=== PATIENT | male | born 1950 | race Caucasian/White ===

== ENCOUNTER 2016-10-11 22:49 | Inpatient (IN) | payer BC, MEDICARE ==
[~2016-10-11 22:49] MED LIST: ADULT LOW DOSE81 M1 PO; ADVAIR 25028 BLISTER INH; ALEVE220 M4 PO; ALLEGRA180 MG PO; AMARYL2 MG PO; AMOXICILLIN500 M1 PO; ASPIR 8181 MG PO; AUGMENTIN 875-1 EAC2 PO; BEE POLLEN PO; BEE POLLEN550 MG PO; BENZONATATE100 M1 PO; CIPRO500 M2 PO; COMPAZINE10 MG PO; COZAAR25 M1 PO; DESONIDE TP; DESONIDE15 G1 TP; ERYTHROMYCIN500 MG PO; FEXOFENADINE H180 M1 PO; FISH OIL 1,0001 CA PO; FISH OIL 1,2001 EAC5 PO; FLONASE ALLERG9.9 ML; FLUTICASONE; GLIPIZIDE10 M2 PO; GLUCOPHAGE1000 MG PO; GLUCOTROL10 M1 PO; HUMALOG MI100 UNIT/3 SQ; HUMULIN N100 U/ML SQ; HUMULIN N100 UNIT/2 SC; HYDROCODON-ACE1 EA16 PO; JARDIANCE25 MG PO; LEVAQUIN500 M1 PO; LEVEMIR100 UNITS/ SC; LOPID600 MG PO; MEDROL4 M1 PO; MEDROL4 M2; MIDODRINE HCL5 M1 PO; MIRALAX17 G2 PO; MOBIC15 M1 PO; NEOMYCIN SULFA500 M1 PO; NITROSTAT0.4 MG/TAB SL; NORCO 5-325 TA1 EACH PO; NOVOLOG FL100 UNIT/2 SC; NOVOLOG100 UNITS/ SC; NYSTATIN15 G2 TP; OMEPRAZOLE20 M3 PO; OMEPRAZOLE40 M2 PO; PROMETH-CODEIN 65 ML PO; PROTONIX40 M2 PO; PROTOPIC60 GM TP; RENAFOOD PO; SENOKOT-S TABL1 EACH PO; SINGULAIR10 M1 PO; SINGULAIR10 MG PO; TOPROL XL25 MG PO; TRIAMCINOLONE A15 G2 TP; TRIAMCINOLONE A15 GM TP; TYLENOL325 M2 PO; VITAMIN D250000 UNI1 PO; VITAMIN D32000 UNI3 PO; VITAMIN D35000 UNI2 PO; VITAMIN D35000 UNI3 PO; VITAMIN D350000 UNI1 PO; VYTORIN 10-401 EACH PO; VYTORIN NG; WAL-DRYL25 M1 PO; ZOFRAN8 M1 PO; [UNRECOGNIZED DRUG - OTHER] PO
[2016-10-11 23:58] LABS: BASO % 0.4 % (0-2); EOS % 5.9 % (0-7); EOSINOPHIL ABSOLUTE COUNT 0.6 tho/cmm (0.0-0.7); HCT-HEMATOCRIT 30.7 % (36.0-53.5); HGB-HEMOGLOBIN 9.6 gm/dl (13.5-17.0); IMMATURE GRANULOCYTES ABSOLUTE 0.02 tho/cmm (0-0.03); IMMATURE GRANULOCYTES PERCENT 0.2 % (0-0.3); LYMPH % 8.3 % (20-45); LYMPH ABSOLUTE COUNT 0.8 tho/cmm (0.8-4.5); MCH (MEAN CORPUSCULAR HGB) 28.5 pg (28.0-32.0); MCHC MEAN CORPUSCULAR HGB CONC 31.3 % (32.0-36.0); MCV (MEAN CELL VOLUME) 91.1 fl (82.0-96.0); MEAN PLATELET VOLUME 9.1 cmc (9.4-12.4); MONO % 7.4 % (0-12); MONOCYTE ABSOLUTE COUNT 0.7 tho/cmm (0.0-1.2); NEUTROPHIL ABSOLUTE COUNT 7.5 tho/cmm (1.6-8.0); NEUTROPHIL-AUTOMATED 7.5 tho/cmm (1.6-8.0); NEUTROPHILS % 77.8 % (40-80); PLATELET COUNT 162 tho/cmm (150-450); RED BLOOD COUNT 3.37 mil/cmm (4.40-5.70); RED CELL DISTRIBUTION WIDTH 16.4 % (12.4-16.4); WHITE BLOOD COUNT 9.7 tho/cmm (4.0-10.0)
[2016-10-12 00:07] LABS: INR 1.2 INR (0.9-1.1); PROTHROMBIN TIME 13.7 SECONDS (9.0-13.6)
[2016-10-12] MEDS ORDERED: ZOCOR40 M1 PO (00:11)
[2016-10-12] MEDS ORDERED: ZETIA10 M1 PO (00:11)
[2016-10-12] MEDS ORDERED: DOXEPIN HCL50 M1 PO (00:12)
[2016-10-12] MEDS ORDERED: WAL ITIN PO (00:12)
[2016-10-12] MEDS ORDERED: FLOMAX0.4 M1 PO (00:12)
[2016-10-12] MEDS ORDERED: LOCOID 0.1% LIP15 GM TP (00:14)
[2016-10-12] MEDS ORDERED: SUPER B COMPLE150 M1 PO (00:14)
[2016-10-12] MEDS ORDERED: TRIAMCINOLONE A15 G2 TOP (00:15)
[2016-10-12] MEDS ORDERED: DESONIDE TP (00:15)
[2016-10-12] MEDS ORDERED: SPIRONOLACTONE100 M1 PO (00:16)
[2016-10-12] MEDS ORDERED: NYSTATIN1 EAC4 TOP (00:16)
[2016-10-12 00:17] LABS: ALB/GLOB RATIO 0.4 (0.8-2.0); ALBUMIN 1.8 g/dl (3.5-5.0); ALKALINE PHOSPHATASE 359 U/L (33-138); ALT/SGPT 19 U/L (12-78); ANION GAP 13 mmol/L (0-20); AST/SGOT 43 U/L (10-40); BILIRUBIN,TOTAL 2.1 mg/dl (0.0-1.5); BLOOD UREA NITROGEN 15 mg/dl (6-24); CALCIUM 7.2 mg/dl (8.5-10.5); CARBON DIOXIDE-VENOUS 20 mmol/L (22-32); CHLORIDE 109 mmol/l (96-110); GLUCOSE 141 mg/dL (70-110); POTASSIUM 3.3 mmol/L (3.7-5.1); SODIUM 139 mmol/L (135-145); eGFR VALUE FOR BLACK 66 mL/Min
[2016-10-12] MEDS ORDERED: FUROSEMIDE20 M1 PO (00:17)
[2016-10-12] MEDS ORDERED: MULTIVITAMINS1 EAC6 PO (00:21)
[2016-10-12 00:28] LABS: PROCALCITONIN 0.84 ng/ml (0.05-0.09)
[2016-10-12 02:55] LABS: C-REACTIVE PROTEIN 13.9 mg/dl (0-0.9); PHOSPHOROUS 2.9 mg/dl (2.5-4.9)
[2016-10-12 04:27] LABS: BASO % 0.2 % (0-2); EOS % 6.8 % (0-7); EOSINOPHIL ABSOLUTE COUNT 0.6 tho/cmm (0.0-0.7); HCT-HEMATOCRIT 28.8 % (36.0-53.5); HGB-HEMOGLOBIN 9.2 gm/dl (13.5-17.0); IMMATURE GRANULOCYTES ABSOLUTE 0.02 tho/cmm (0-0.03); IMMATURE GRANULOCYTES PERCENT 0.2 % (0-0.3); LYMPH % 9.6 % (20-45); LYMPH ABSOLUTE COUNT 0.8 tho/cmm (0.8-4.5); MCH (MEAN CORPUSCULAR HGB) 28.9 pg (28.0-32.0); MCHC MEAN CORPUSCULAR HGB CONC 31.9 % (32.0-36.0); MCV (MEAN CELL VOLUME) 90.6 fl (82.0-96.0); MEAN PLATELET VOLUME 8.4 cmc (9.4-12.4); MONO % 7.3 % (0-12); MONOCYTE ABSOLUTE COUNT 0.6 tho/cmm (0.0-1.2); NEUTROPHIL ABSOLUTE COUNT 6.1 tho/cmm (1.6-8.0); NEUTROPHIL-AUTOMATED 6.1 tho/cmm (1.6-8.0); NEUTROPHILS % 75.9 % (40-80); PLATELET COUNT 141 tho/cmm (150-450); RED BLOOD COUNT 3.18 mil/cmm (4.40-5.70); RED CELL DISTRIBUTION WIDTH 16.3 % (12.4-16.4); WHITE BLOOD COUNT 8.1 tho/cmm (4.0-10.0)
[2016-10-12 04:48] LABS: ALB/GLOB RATIO 0.3 (0.8-2.0); ALBUMIN 1.6 g/dl (3.5-5.0); ALKALINE PHOSPHATASE 342 U/L (33-138); ALT/SGPT 19 U/L (12-78); ANION GAP 11 mmol/L (0-20); AST/SGOT 41 U/L (10-40); BILIRUBIN,TOTAL 2.1 mg/dl (0.0-1.5); BLOOD UREA NITROGEN 14 mg/dl (6-24); CALCIUM 7.2 mg/dl (8.5-10.5); CARBON DIOXIDE-VENOUS 23 mmol/L (22-32); CHLORIDE 108 mmol/l (96-110); CREATININE 1.06 mg/dl (0.60-1.30); GLUCOSE 81 mg/dL (70-110); POTASSIUM 3.1 mmol/L (3.7-5.1); SODIUM 139 mmol/L (135-145); eGFR VALUE FOR BLACK 85 mL/Min
[2016-10-12 22:34] LABS: URINE LEUKOCYTE ESTERASE POSITIVE (NEG); URINE PROTEIN NEGATIVE (NEG)
[2016-10-12 22:35] LABS: URINE BILIRUBIN NEGATIVE (NEG); URINE BLOOD MODERATE (NEG); URINE GLUCOSE (UA) LARGE (NEG); URINE KETONE NEGATIVE (NEG); URINE NITRITE NEGATIVE (NEG)
[2016-10-12 22:36] LABS: URINE APPEARANCE HAZY; URINE COLOR YELLOW
[2016-10-12 22:40] LABS: URINE EPITHELIAL CELLS 0 /[HPF] (0-10); URINE WBC 30-40 /[HPF] (0-5)
[2016-10-13 05:24] LABS: BASO % 0.5 % (0-2); EOS % 10.4 % (0-7); EOSINOPHIL ABSOLUTE COUNT 0.7 tho/cmm (0.0-0.7); HCT-HEMATOCRIT 27.6 % (36.0-53.5); HGB-HEMOGLOBIN 8.5 gm/dl (13.5-17.0); LYMPH ABSOLUTE COUNT 0.7 tho/cmm (0.8-4.5); MCH (MEAN CORPUSCULAR HGB) 28.2 pg (28.0-32.0); MCHC MEAN CORPUSCULAR HGB CONC 30.8 % (32.0-36.0); MCV (MEAN CELL VOLUME) 91.7 fl (82.0-96.0); MEAN PLATELET VOLUME 9.1 cmc (9.4-12.4); MONO % 9.9 % (0-12); MONOCYTE ABSOLUTE COUNT 0.6 tho/cmm (0.0-1.2); NEUTROPHIL ABSOLUTE COUNT 4.3 tho/cmm (1.6-8.0); NEUTROPHIL-AUTOMATED 4.3 tho/cmm (1.6-8.0); NEUTROPHILS % 68.2 % (40-80); PLATELET COUNT 159 tho/cmm (150-450); RED BLOOD COUNT 3.01 mil/cmm (4.40-5.70); RED CELL DISTRIBUTION WIDTH 16.2 % (12.4-16.4); WHITE BLOOD COUNT 6.4 tho/cmm (4.0-10.0)
[2016-10-14 06:09] LABS: BASO % 0.9 % (0-2); BASO ABSOLUTE COUNT 0.1 tho/cmm (0.0-0.2); EOS % 9.8 % (0-7); EOSINOPHIL ABSOLUTE COUNT 0.6 tho/cmm (0.0-0.7); HCT-HEMATOCRIT 27.3 % (36.0-53.5); HGB-HEMOGLOBIN 8.7 gm/dl (13.5-17.0); IMMATURE GRANULOCYTES ABSOLUTE 0.02 tho/cmm (0-0.03); IMMATURE GRANULOCYTES PERCENT 0.4 % (0-0.3); LYMPH % 11.8 % (20-45); LYMPH ABSOLUTE COUNT 0.7 tho/cmm (0.8-4.5); MCH (MEAN CORPUSCULAR HGB) 28.4 pg (28.0-32.0); MCHC MEAN CORPUSCULAR HGB CONC 31.9 % (32.0-36.0); MCV (MEAN CELL VOLUME) 89.2 fl (82.0-96.0); MONO % 7.7 % (0-12); MONOCYTE ABSOLUTE COUNT 0.4 tho/cmm (0.0-1.2); NEUTROPHIL ABSOLUTE COUNT 3.9 tho/cmm (1.6-8.0); NEUTROPHIL-AUTOMATED 3.9 tho/cmm (1.6-8.0); NEUTROPHILS % 69.4 % (40-80); PLATELET COUNT 154 tho/cmm (150-450); RED BLOOD COUNT 3.06 mil/cmm (4.40-5.70); RED CELL DISTRIBUTION WIDTH 16.4 % (12.4-16.4); WHITE BLOOD COUNT 5.6 tho/cmm (4.0-10.0)
[2016-10-15 06:07] LABS: BASO % 0.8 % (0-2); EOS % 8.9 % (0-7); EOSINOPHIL ABSOLUTE COUNT 0.5 tho/cmm (0.0-0.7); HCT-HEMATOCRIT 27.5 % (36.0-53.5); HGB-HEMOGLOBIN 8.8 gm/dl (13.5-17.0); IMMATURE GRANULOCYTES ABSOLUTE 0.01 tho/cmm (0-0.03); IMMATURE GRANULOCYTES PERCENT 0.2 % (0-0.3); LYMPH % 11.4 % (20-45); LYMPH ABSOLUTE COUNT 0.6 tho/cmm (0.8-4.5); MCH (MEAN CORPUSCULAR HGB) 28.4 pg (28.0-32.0); MCV (MEAN CELL VOLUME) 88.7 fl (82.0-96.0); MEAN PLATELET VOLUME 8.8 cmc (9.4-12.4); MONO % 8.3 % (0-12); MONOCYTE ABSOLUTE COUNT 0.4 tho/cmm (0.0-1.2); NEUTROPHIL ABSOLUTE COUNT 3.7 tho/cmm (1.6-8.0); NEUTROPHIL-AUTOMATED 3.7 tho/cmm (1.6-8.0); NEUTROPHILS % 70.4 % (40-80); PLATELET COUNT 156 tho/cmm (150-450); RED CELL DISTRIBUTION WIDTH 16.5 % (12.4-16.4); WHITE BLOOD COUNT 5.3 tho/cmm (4.0-10.0)
--- NOTE | 2016-10-16 13:49 | NUR ---
Patient and family request to interview [facility] and [facility] providers. Called and faxed information to both agencies. Info given on specific questions patient and family wish to address with hospice. Support given.
[2016-10-17] MEDS ORDERED: VIBRAMYCIN100 M1 PO (17:18)
[2016-10-17] MEDS ORDERED: MORPHINE S20 MG/1 M1 PO (17:26)
[2016-10-17] MEDS ORDERED: ATIVAN2 MG/1 ML PO (17:27)
[2016-12-31] MEDS ORDERED: PREDNISONE10 M1 PO (17:25)
[2016-12-31] MEDS ORDERED: OXYGEN (17:26)
[2016-12-31] MEDS ORDERED: ZOFRAN4 M2 PO (17:26)
[2016-12-31] MEDS ORDERED: NOVOLOG100 UNITS/ (17:29)
[2017-01-04] MEDS ORDERED: ZYVOX PO (11:48)
[2017-01-04] MEDS ORDERED: SANTYL30 G1 TOP (11:49)
== END 2016-10-17 18:30 | disposition hospice, home (50) | DRG 872 ==
LOC: EDMED 22:49 → EMR2 10-12 02:05 → 5WF 10-12 03:17
PROVIDERS: Emergency Medicine; Internal Medicine Infectious Disease; Physician Assistant; ADMIT Internal Medicine
PROC: 0W9G30Z Drainage of Peritoneal Cavity with Drainage Device, Percutaneous Approach (ICD-10-PCS; principal; 2016-10-17)
DX: A41.02 Sepsis due to Methicillin resistant Staphylococcus aureus (principal); E44.0 Moderate protein-calorie malnutrition; C78.7 Secondary malignant neoplasm of liver and intrahepatic bile duct; C78.00 Secondary malignant neoplasm of unspecified lung; C79.51 Secondary malignant neoplasm of bone; I95.9 Hypotension, unspecified; K92.2 Gastrointestinal hemorrhage, unspecified; M86.9 Osteomyelitis, unspecified; L03.115 Cellulitis of right lower limb; C18.9 Malignant neoplasm of colon, unspecified; L97.429 Non-pressure chronic ulcer of left heel and midfoot with unspecified severity; E11.610 Type 2 diabetes mellitus with diabetic neuropathic arthropathy; R65.20 Severe sepsis without septic shock; Z68.30 Body mass index [BMI] 30.0-30.9, adult; B95.62 Methicillin resistant Staphylococcus aureus infection as the cause of diseases classified elsewhere; B95.4 Other streptococcus as the cause of diseases classified elsewhere; B96.89 Other specified bacterial agents as the cause of diseases classified elsewhere; Z51.5 Encounter for palliative care; Z93.3 Colostomy status; E11.42 Type 2 diabetes mellitus with diabetic polyneuropathy; E11.319 Type 2 diabetes mellitus with unspecified diabetic retinopathy without macular edema; E11.22 Type 2 diabetes mellitus with diabetic chronic kidney disease; N18.3 Chronic kidney disease, stage 3 (moderate); E87.6 Hypokalemia; E78.5 Hyperlipidemia, unspecified; I25.10 Atherosclerotic heart disease of native coronary artery without angina pectoris; Z95.5 Presence of coronary angioplasty implant and graft; K43.5 Parastomal hernia without obstruction or gangrene; K40.90 Unilateral inguinal hernia, without obstruction or gangrene, not specified as recurrent; Z87.891 Personal history of nicotine dependence; Z83.3 Family history of diabetes mellitus; Z82.49 Family history of ischemic heart disease and other diseases of the circulatory system; Z88.2 Allergy status to sulfonamides; Z88.1 Allergy status to other antibiotic agents; Z88.8 Allergy status to other drugs, medicaments and biological substances; Z79.84 Long term (current) use of oral hypoglycemic drugs; Z79.51 Long term (current) use of inhaled steroids; Z79.899 Other long term (current) drug therapy; R53.81 Other malaise; Z53.29 Procedure and treatment not carried out because of patient's decision for other reasons; Z66 Do not resuscitate
CPT/HCPCS: A9577; C1729; G8978-GP-CJ; G8979-GP-CI; J0690; J1650; J1815; J2020; J2060; J2250; J2543; J3010; J7030; J7999; Q9967